=== PATIENT | male | born 1975 | race Caucasian/White ===

== ENCOUNTER 2017-01-07 15:35 | Inpatient (IN) | payer SELFPAY ==
[~2017-01-07] VITALS: Ht 198.1 cm; Wt 105.3 kg
[2017-01-07 17:37] LABS: PLATELET COUNT 346 x10^3mcL (130-400); RED CELL DISTRIBUTION WIDTH 13.6 % (11.5-14.5)
[2017-01-07 17:58] LABS: CK-MB 0.5 ng/mL (0-3.6)
[2017-01-07 18:02] LABS: FREE T4 1.6 ng/dL (0.76-1.46); FREE THYROXINE INDEX 2.3 ug/dL (1.4-4.5); T4(THYROXINE) 5.6 ug/dL (4.7-13.3)
[2017-01-07 18:04] LABS: BAND NEUTROPHIL 15 % (0-10); BASOPHIL 0 % (0-2); MONOCYTE 1 % (0-7); SEGMENTED NEUTROPHILS 76 % (37-75); T3 TOTAL 0.3 ng/mL
[2017-01-07 18:05] LABS: rbc morphology (normal/abnorm) NORMAL (NORMAL)
[2017-01-07 18:10] LABS: BILIRUBIN TOTAL 0.7 mg/dL (0.20-1.00); CARBON DIOXIDE 23.7 mmol/L (21-32); CREATININE SERUM 1.6 mg/dL (0.7-1.3); TOTAL PROTEIN, SERUM 7.3 g/dL (6.4-8.2)
[2017-01-07 18:20] LABS: ERYTHROCYTE SED RATE 0 mm/hr (0-15)
[2017-01-07 18:37] LABS: C REACTIVE PROTEIN 52.3 mg/dL (<=0.9)
[2017-01-07 21:31] LABS: MAGNESIUM 1.7 mg/dL (1.8-2.4)
[2017-01-08 03:52] VITALS: BP 105/69
[2017-01-08 04:29] VITALS: Ht 198.1 cm; Wt 105.3 kg
[2017-01-08 05:50] LABS: PLATELET COUNT 275 x10^3mcL (130-400); RED CELL DISTRIBUTION WIDTH 13.6 % (11.5-14.5)
[2017-01-08 05:58] LABS: CALCIUM 7.8 mg/dL (8.5-10.1); CARBON DIOXIDE 19.7 mmol/L (21-32); CREATININE SERUM 2.1 mg/dL (0.7-1.3); MAGNESIUM 1.8 mg/dL (1.8-2.4); PHOSPHOROUS 5.2 mg/dL (2.5-4.9)
[2017-01-08 08:48] VITALS: BP 94/62
[2017-01-08 10:41] LABS: BAND NEUTROPHIL 32 % (0-10); BASOPHIL 0 % (0-2); METAMYELOCTE 2 % (0-2); MONOCYTE 6 % (0-7); SEGMENTED NEUTROPHILS 54 % (37-75)
[2017-01-08 13:23] VITALS: BP 86/59
[2017-01-08 15:11] VITALS: BP 107/69
[2017-01-08 17:00] VITALS: BP 100/61
[2017-01-08 21:33] VITALS: BP 108/70
[2017-01-09 03:39] LABS: UA SPECIFIC GRAVITY >=1.030 (1.005-1.035); microscopic required? YES; urine erythrocyte 1+ (NEGATIVE)
[2017-01-09 03:55] LABS: AMPHETAMINE QUAL UR NONE DETECTED (NEG <=1000)
[2017-01-09 05:50] LABS: PLATELET COUNT 265 x10^3mcL (130-400)
[2017-01-09 06:04] VITALS: BP 117/65
[2017-01-09 06:25] LABS: CALCIUM 7.8 mg/dL (8.5-10.1); CARBON DIOXIDE 17.1 mmol/L (21-32); MAGNESIUM 2.1 mg/dL (1.8-2.4); PHOSPHOROUS 6.5 mg/dL (2.5-4.9)
[2017-01-09 09:34] LABS: BAND NEUTROPHIL 22 % (0-10); BASOPHIL 0 % (0-2); MONOCYTE 11 % (0-7); SEGMENTED NEUTROPHILS 56 % (37-75)
[2017-01-09 09:35] LABS: PLATELET MORPHOLOGY LARGE PLATELET SEEN; rbc morphology (normal/abnorm) ABNORMAL (NORMAL)
[2017-01-09 12:23] LABS: PLATELET COUNT 288 x10^3mcL (130-400)
[2017-01-09 12:31] LABS: RED CELL DISTRIBUTION WIDTH 15.2 % (11.5-14.5)
[2017-01-09 13:04] LABS: BILIRUBIN TOTAL 1.97 mg/dL (0.20-1.00); CALCIUM 7.6 mg/dL (8.5-10.1); CARBON DIOXIDE 11.9 mmol/L (21-32); POTASSIUM SERUM 5.3 mmol/L (3.5-5.1); TOTAL PROTEIN, SERUM 6.4 g/dL (6.4-8.2)
[2017-01-09 13:21] LABS: BAND NEUTROPHIL 4 % (0-10); BASOPHIL 0 % (0-2); MONOCYTE 4 % (0-7); PLATELET MORPHOLOGY PLATELETS INCREASED; SEGMENTED NEUTROPHILS 85 % (37-75); rbc morphology (normal/abnorm) ABNORMAL (NORMAL)
[2017-01-09 13:43] LABS: ALBUMIN 1.8 g/dL (3.4-5.0)
[2017-01-09 13:47] LABS: CREATININE SERUM 4.4 mg/dL (0.7-1.3)
[2017-01-09 14:15] VITALS: BP 138/64
== END 2017-01-09 15:09 | disposition expired | DRG 853 ==
LOC: ED 15:35 → DU 20:14 → ED 20:14 → MU 20:14 → IC 20:14 → DU 20:29 → MU 01-08 09:13 → IC 01-09 12:51
PROVIDERS: Family Medicine; Specialist; Surgery; ADMIT Family Medicine
PROC: 0JBL0ZZ Excision of Right Upper Leg Subcutaneous Tissue and Fascia, Open Approach (ICD-10-PCS; principal; 2017-01-08)
PROC: 0J8 Subcutaneous Tissue and Fascia, Division (ICD-10-PCS; 2017-01-08)
PROC: 0Y6X0Z1 Detachment at Right 5th Toe, High, Open Approach (ICD-10-PCS; 2017-01-08)
DX: A41.9 Sepsis, unspecified organism (principal); M72.6 Necrotizing fasciitis; E43 Unspecified severe protein-calorie malnutrition; N17.0 Acute kidney failure with tubular necrosis; R65.21 Severe sepsis with septic shock; E87.1 Hypo-osmolality and hyponatremia; D68.69 Other thrombophilia; M86.8X7 Other osteomyelitis, ankle and foot; M00.9 Pyogenic arthritis, unspecified; I96 Gangrene, not elsewhere classified; E11.65 Type 2 diabetes mellitus with hyperglycemia; E11.42 Type 2 diabetes mellitus with diabetic polyneuropathy; E83.42 Hypomagnesemia; E87.8 Other disorders of electrolyte and fluid balance, not elsewhere classified; E78.1 Pure hyperglyceridemia; D64.9 Anemia, unspecified; Z68.26 Body mass index [BMI] 26.0-26.9, adult; Z79.84 Long term (current) use of oral hypoglycemic drugs
CPT/HCPCS: 36600; 80307; 82962; 83880; 84439; A4628; C9113; J0171; J1170; J1644; J1720; J1815; J1885; J2250; J2270; J2405; J2543; J3010; J3370; J3490; J7030; P9045; Q0092